=== PATIENT | female | born 1990 | race Caucasian/White ===

== ENCOUNTER 2016-11-04 19:20 | Emergency (ER) | payer OTHER ==
[~2016-11-04] VITALS: Ht 154.9 cm; Wt 66.5 kg
[2016-11-04 19:34] VITALS: TEMP 37.2; Ht 154.9 cm; Wt 66.5 kg
[2016-11-04] MEDS ORDERED: GI COCKTAIL PO STA (20:20)
[2016-11-04] MEDS ORDERED: KETOROLAC TROMETHAMINE 30 MG/ML VIAL IV STA (20:20)
[2016-11-04] MEDS ORDERED: ONDANSETRON INJ 2 MG/ML 2 ML VIAL IV STA (20:20)
[2016-11-04] MEDS ORDERED: SODIUM CHLORIDE 0.9% 1000ML 1,000 ML IV STA (20:20)
[2016-11-04 20:21] LABS: BASO % 0.5 %; BASO ABS # 0.05 K/uL (0-0.2); COMPLETE YES; EOS % 7.6 %; HEMATOCRIT 43.7 % (37-47); IG% 0.2 %; LYMPH % 25.3 %; LYMPH ABS # 2.52 K/uL (1.2-3.4); MEAN CORPUSCULAR HGB CONC 35.2 g/dl (32-36); MEAN PLATELET VOLUME 10.6 fL (7.4-10.4); MONO % 7.1 %; NEUT % 59.3 %; PLATELET COUNT 211 K/uL (130-400); RED BLOOD COUNT 5.14 M/uL (4.2-5.4); WHITE BLOOD COUNT 9.98 K/uL (4.8-10.8)
[2016-11-04] MEDS ORDERED: ALUMINUM/MAGNESIUM SUSP 30 ML UDC ONE (20:37)
[2016-11-04] MEDS ORDERED: LIDOCAINE HCL 2% VISC SOLN 20 ML UDC ONE (20:38)
[2016-11-04 20:40] LABS: BUN/CREATININE RATIO 2.6 (10-20); CREATININE 0.86 mg/dl (0.60-1.20); POTASSIUM 3.6 mmol/L (3.5-5.1)
[2016-11-04 20:43] LABS: ALB/GLOB RATIO 0.9 (0.9-2); CALCIUM 8.9 mg/dl (8.5-10.1)
--- NOTE | 2016-11-04 21:12 | DIAGNOSTIC IMAGING REPORT ---
BILIARY ULTRASOUND CLINICAL HISTORY: Right upper quadrant abdominal pain COMPARISON STUDY: None FINDINGS: The pancreas appears normal as visualized. There are no hepatic masses. The gallbladder appears sonographically normal. There is no ductal dilatation. The common bile duct measures 4 mm. There is no right-sided hydronephrosis. IMPRESSION: Normal biliary ultrasound Electronically signed by: Chun Jiang M.D. 11/04/2016 9:09 PM Dictated Date/Time: 11/04/2016 9:08 PM
[2016-11-04 21:40] LABS: URINE APPEARANCE CLOUDY (CLEAR); URINE BILIRUBIN NEG (NEG); URINE COLOR DK YELLOW; URINE EPITHELIAL CELL AUTO >30 /lpf (0-5); URINE NITRITE NEG (NEG); URINE SPECIFIC GRAVITY 1.022 (1.000-1.030); UROBILINOGEN NEG (NEG); ZZUR CULT IF INDIC CLEAN CATCH YES
[2016-11-04] MEDS ORDERED: PRVHFAIN INH (21:40)
[2016-11-04 21:48] LABS: MANUAL MICROSCOPIC REQUIRED? NO; REVIEW REQ? YES
[2016-11-04 22:42] LABS: URINE MUCUS PRESENT (NONE PRSENT)
[2016-11-04] MEDS ORDERED: FAMO20TA11 PO (23:18)
[2016-11-04 23:27] VITALS: BP 109/67; PULSE 78; O2SAT 98
--- NOTE | 2016-11-05 02:40 | EMERGENCY ROOM VISIT NOTE ---
History Report prepared by Gab: Abelino Williamson Under the Supervision of: Dr. Eliseo Wood D.O. First contact with patient: 20:09 Chief Complaint: ABDOMINAL PAIN Stated Complaint: ABD PAIN Nursing Triage Summary: patient c/o upper right abdominal pain "for at least six months, worse today, it just won't go away." Patient reports eating worsens nausea and discomfort. History of Present Illness The patient is a 26 year old female who presents to the Emergency Room with complaints of constant abdominal pain that radiates into her back starting around 0500 this morning. The patient states that for the past six months she has been having nausea, and the pain just started today. The patient states that eating makes the nausea worse. The patient additionally states that she has been having some vaginal bleeding which just started while in the ED. The patient states that she is sexually active, has a kid, and she still has her appendix and gall bladder. The patient states that her period will be starting in two days. She states that her last bowel movement was this morning, and she was given Motrin about an hour and a half ago. Pt denies headache, change in vision, fevers, chest pain, shortness of breath, vomiting, diarrhea, pain with urination, and melena. Source of History: patient Onset: 0500 Position: abdomen Timing: constant Associated Symptoms: + nausea, No vomiting Note: Associated symptoms: Vaginal bleeding Review of Systems See HPI for pertinent positives & negatives. A total of 10 systems reviewed and were otherwise negative. Past Medical & Surgical Medical Problems: (1) Asthma Family History Diabetes mellitus FH: cancer FH: gallbladder disease FH: heart disease Hypertension Kidney disease Kidney stones Seizures Social History Smoking Status: Current Every Day Smoker Marital Status: single Housing Status: lives with family Occupation Status: unemployed Current/Historical Medications Scheduled Famotidine (Pepcid), 20 MG PO DAILY Scheduled PRN Albuterol (Ventolin Hfa), 2 PUFFS INH Q4H PRN for Cough/Wheezing Allergies Coded Allergies: No Known Allergies (Unverified , 01/01/16) Physical Exam Vital Signs Date Time Temp Pulse Resp B/P Pulse Ox O2 Delivery O2 Flow Rate FiO2 11/04/16 23:27 78 18 109/67 98 Room Air 11/04/16 21:21 70 18 106/66 100 Room Air 11/04/16 19:34 37.2 84 20 129/77 98 Room Air Physical Exam GENERAL: Sitting up in bed alert, well appearing, well nourished, no distress, non-toxic EYE EXAM: normal conjunctiva OROPHARYNX: no exudate, no erythema, lips, buccal mucosa, and tongue normal and mucous membranes are moist NECK: supple, no nuchal rigidity, no adenopathy, non-tender LUNGS: Clear to auscultation. Normal chest wall mechanics HEART: no murmurs, S1 normal and S2 normal ABDOMEN: Minimal tenderness in the right upper quadrant. Abdomen soft, normo- active bowel sounds, no masses, no rebound or guarding. BACK: Back is symmetrical on inspection and there is no deformity, no midline tenderness, no CVA tenderness. SKIN: no rashes and no bruising UPPER EXTREMITIES: upper extremities are grossly normal. LOWER EXTREMITIES: No pitting edema. NEURO EXAM: Normal sensorium, cranial nerves II-XII grossly intact, normal speech, no gross weakness of arms, no gross weakness of legs. Gross sensation intact. Medical Decision & Procedures ER Provider Diagnostic Interpretation: Radiology results as stated below per my review and the radiologist's interpretation: BILIARY ULTRASOUND CLINICAL HISTORY: Right upper quadrant abdominal pain COMPARISON STUDY: None FINDINGS: The pancreas appears normal as visualized. There are no hepatic masses. The gallbladder appears sonographically normal. There is no ductal dilatation. The common bile duct measures 4 mm. There is no right-sided hydronephrosis. IMPRESSION: Normal biliary ultrasound Electronically signed by: Chun Jiang M.D. 11/04/2016 9:09 PM Dictated Date/Time: 11/04/2016 9:08 PM Laboratory Results 11/04/16 20:00 Red Blood Count 5.14, Mean Corpuscular Volume 85.0, Mean Corpuscular Hemoglobin 30.0, Mean Corpuscular Hemoglobin Concent 35.2, Mean Platelet Volume 10.6, Neutrophils (%) (Auto) 59.3, Lymphocytes (%) (Auto) 25.3, Monocytes (%) (Auto) 7.1, Eosinophils (%) (Auto) 7.6, Basophils (%) (Auto) 0.5, Neutrophils # (Auto) 5.92, Lymphocytes # (Auto) 2.52, Monocytes # (Auto) 0.71, Eosinophils # (Auto) 0.76, Basophils # (Auto) 0.05 11/04/16 20:00 Test 4/22/17 19:55 11/04/16 20:00 Urine Color DK YELLOW Urine Appearance CLOUDY (CLEAR) Urine pH 6.0 (4.5-7.5) Urine Specific [place] 1.022 (1.000-1.030) Urine Protein TRACE (NEG) Urine Glucose (UA) NEG (NEG) Urine Ketones TRACE (NEG) Urine Occult Blood 3+ (NEG) Urine Nitrite NEG (NEG) Urine Bilirubin NEG (NEG) Urine Urobilinogen NEG (NEG) Urine Leukocyte Esterase TRACE (NEG) Urine WBC (Auto) >30 /hpf (0-5) Urine RBC (Auto) >30 /hpf (0-4) Urine Hyaline Casts (Auto) 0 /lpf (0-5) Urine Epithelial Cells (Auto) >30 /lpf (0-5) Urine Bacteria (Auto) 1+ (NEG) Urine Pathogenic Casts /lpf (0) Urine Mucus PRESENT (NONE PRSENT) Urine Test NEG (NEG) White Blood Count 9.98 K/uL (4.8-10.8) Red Blood Count 5.14 M/uL (4.2-5.4) Hemoglobin 15.4 g/dL (12.0-16.0) Hematocrit 43.7 % (37-47) Mean Corpuscular Volume 85.0 fL (80-100) Mean Corpuscular Hemoglobin 30.0 pg (25-34) Mean Corpuscular Hemoglobin Concent 35.2 g/dl (32-36) Platelet Count 211 K/uL (130-400) Mean Platelet Volume 10.6 fL (7.4-10.4) Neutrophils (%) (Auto) 59.3 % Lymphocytes (%) (Auto) 25.3 % Monocytes (%) (Auto) 7.1 % Eosinophils (%) (Auto) 7.6 % Basophils (%) (Auto) 0.5 % Neutrophils # (Auto) 5.92 K/uL (1.4-6.5) Lymphocytes # (Auto) 2.52 K/uL (1.2-3.4) Monocytes # (Auto) 0.71 K/uL (0.11-0.59) Eosinophils # (Auto) 0.76 K/uL (0-0.5) Basophils # (Auto) 0.05 K/uL (0-0.2) RDW Standard Deviation 40.8 fL (36.4-46.3) RDW Coefficient of Variation 13.1 % (11.5-14.5) Immature Granulocyte % (Auto) 0.2 % Immature Granulocyte # (Auto) 0.02 K/uL (0.00-0.02) Anion Gap 7.0 mmol/L (3-11) Est Creatinine Clear Calc Drug Dose 87.2 ml/min Estimated GFR () 108.8 Estimated GFR (Non- 93.9 BUN/Creatinine Ratio 2.6 (10-20) Calcium Level 8.9 mg/dl (8.5-10.1) Total Bilirubin 0.2 mg/dl (0.2-1) Aspartate Amino Transf (AST/SGOT) 15 U/L (15-37) Alanine Aminotransferase (ALT/SGPT) 21 U/L (12-78) Alkaline Phosphatase 124 U/L (45-117) Total Protein 7.9 gm/dl (6.4-8.2) Albumin 3.7 gm/dl (3.4-5.0) Globulin 4.2 gm/dl (2.5-4.0) Albumin/Globulin Ratio 0.9 (0.9-2) Lipase 96 U/L (73-393) Laboratory results per my review. Medications Administered Medications (Trade) Dose Ordered Sig/Monica Route Start Time Stop Time Status Last Admin Dose Admin Sodium Chloride (Nss 1000ml) 1,000 ml @ 999 mls/hr Q1H1M STAT IV 11/04/16 20:20 11/04/16 21:20 DC 11/04/16 20:34 999 MLS/HR Miscellaneous Medication (Gi Cocktail) 24 ml NOW STAT PO 11/04/16 20:20 11/04/16 20:22 DC 11/04/16 20:20 24 ML Ketorolac Tromethamine (Toradol Inj) 30 mg NOW STAT IV 11/04/16 20:20 11/04/16 20:22 DC 11/04/16 20:34 30 MG Ondansetron HCl (Zofran Inj) 4 mg NOW STAT IV 11/04/16 20:20 11/04/16 20:22 DC 11/04/16 20:34 4 MG Al Hydroxide/Mg Hydroxide (Maalox Susp) 30 ml STK-MED ONCE .ROUTE 11/04/16 20:37 11/04/16 20:38 DC 11/04/16 20:33 30 ML Lidocaine HCl (Viscous Lidocaine 2% Soln) 20 ml STK-MED ONCE .ROUTE 11/04/16 20:38 11/04/16 20:39 DC 11/04/16 20:33 20 ML ED Course ED COURSE: Vital signs were reviewed and showed normal vitals The patients medical record was reviewed The above diagnostic studies were performed and reviewed. ED treatments and interventions as stated above. 2008: The patient was evaluated in room B8. A complete history and physical examination was performed. 2019: Zofran Inj 4mg IV, Toradol Inj 30mg IV, GI Cocktail 24ml PO, Sodium Chloride 1000 ml @ 999 mls/hr IV 2036: Maalox Susp 30ml PO 2037: Viscous Lidocaine 2% Soln 20ml PO 2237: I updated the patient 2317: Upon reevaluation, the patient is resting.I discussed my findings with the patient and she understands and agrees with the treatment plan. Based on the patients age, coexisting illnesses, exam and lab findings the decision to treat as an outpatient was made. The patient remained stable while under my care. The patient appeared well at the time of discharge. Medical Decision Differential diagnoses includes but is not limited to gastritis, peptic ulcer disease, GERD, gallbladder disease, pancreatitis, small bowel obstruction, acute coronary syndrome, pericarditis, ischemic bowel, irritable bowel disease, irritable bowel syndrome, appendicitis, diverticulitis, malignancy, hernia, urinary tract infection, torsion, /ectopic , perforation, trauma, infectious. Patient is a 26-year-old female who presents the ER for epigastric abdominal discomfort which has been present for the past 6 months. She notes that she has associated nausea. Tonight pain started for the first time. Labs including CBC, BMP, LFTs, bilirubin and lipase were normal. UA was contaminated with multiple epithelial cells. was negative. Ultrasound of her gallbladder was normal. She was given a GI cocktail and had complete resolution of her symptoms. Based on her symptoms I do favor this is likely gastritis or possible ulcer. Patient was discharged with a perception for Pepcid and instructed to follow-up with her PCP for possible valuation by GI. Discussed with Pt concerning signs and symptoms to watch out for. Pt was instructed to follow up with their PCP and discussed with the patient their option to return to the ED at anytime for persistent or worsening symptoms. The appropriate anticipatory guidance and out-patient management, including indications for return to the emergency department, were explained at length to the patient and understood. Impression Primary Impression: Epigastric abdominal pain Scribe Attestation The scribe's documentation has been prepared under my direction and personally reviewed by me in its entirety. I confirm that the note above accurately reflects all work, treatment, procedures, and medical decision making performed by me. Departure Information Dispostion Home / Self-Care Prescriptions Famotidine (Pepcid) 20 Mg Tab 20 MG PO DAILY, #30 TAB Prov: Eliseo Wood, DO 11/04/16 Referrals No Doctor, Assigned (PCP) Forms HOME CARE DOCUMENTATION FORM, IMPORTANT VISIT INFORMATION Patient Instructions Abdominal Pain - [facility], Gastritis [place], [facility] Additional Instructions Please follow up with your primary care doctor with in the next 24 hours. Any worsening of your symptoms, please return to the ED immediately. This includes worsening pain, persistent nausea vomiting, fevers greater than 100.4, blood in your stool, or any other concerning signs or symptoms from your standpoint. Please take Pepcid as prescribed.
== END 2016-11-04 23:29 | disposition home or self-care (01) ==
LOC: MERGE 20:33 → C.EDB 20:33
DX: R10.13 Epigastric pain (principal); M54.9 Dorsalgia, unspecified; R11.0 Nausea; J45.909 Unspecified asthma, uncomplicated; F17.200 Nicotine dependence, unspecified, uncomplicated; Z83.3 Family history of diabetes mellitus; Z82.49 Family history of ischemic heart disease and other diseases of the circulatory system; Z84.1 Family history of disorders of kidney and ureter; Z82.0 Family history of epilepsy and other diseases of the nervous system